=== PATIENT | male | born 1965 | race Caucasian/White ===

== ENCOUNTER 2018-11-22 13:23 | Observation (INO) ==
--- NOTE | 2018-11-22 13:42 | Emergency Department Note ---
Entered by Rosario Cabral acting as a scribe for Jayson Hanson DO History of Present Illness General Chief complaint: Tachycardia Stated complaint: tachycardia Source: patient History of Present Illness Onset (ago): hour(s) (1200 today) Location: chest Pain Consistency: + other (sudden) Quality: + other (palpitations, heart beating rapidly) Associated symptoms: + denies other symptoms and + other (Positive dizziness when staning, anxiousness. Negative history of smoking) The patient is a 53 year old male who presents to the Emergency Room with complaints of palpitations beginning at 1200 today. He notes he was staying at the [facility] when he suddenly felt his heart beating rapidly. He states he has chest tightness, dizziness when standing, and slight anxiousness. Pt is not on any medications and denies any history of smoking or any other symptoms. Home Medications Home Medications Medication Instructions Recorded Confirmed Type Farrah's wort 0 mg PO DAILY PRN 11/22/18 11/22/18 History ascorbic acid (vitamin C) 1 cap PO DAILY 11/22/18 11/22/18 History wuchrunhdmnj-dgje-misdt acid 1 tab PO DAILY 11/22/18 11/22/18 History [Centrum] Allergies Allergy/AdvReac Type Severity Reaction Status Date / Time almond AdvReac Congested Verified 11/22/18 14:14 peanut AdvReac Congested Verified 11/22/18 14:14 Past Med/Surg History Medical History Family history non-contributory Family History Other No pertinent family history Social History Feels Safe at Home: Yes Smoking Status: Former smoker Preferred Language: Ivorian Review of Systems See HPI for pertinent positives & negatives. and A total of 10 systems reviewed and were otherwise negative Physical Exam Vital Signs Vital Signs - 24 hr 11/22/18 13:20 11/22/18 13:26 11/22/18 13:28 Temperature 36.7 C Temperature Source Oral Sepsis Recent Fever Within 48 Hours No Sepsis Action Taken by Nursing No Action Required Pulse Rate 128 H 93 H 104 H Pulse Rate [Left] Pulse Rhythm Respiratory Rate 20 20 22 Respiratory Effort / Characteristics Non-Labored Spontaneous Respiratory Depth Normal Respiratory Pattern Regular Blood Pressure 142/96 H 142/96 H Blood Pressure [Right Arm] Blood Pressure Mean 111 111 Blood Pressure Mean [Right Arm] Pulse Oximetry 95 96 96 Oxygen Delivery Method Room Air Room Air Room Air 11/22/18 13:30 11/22/18 13:33 11/22/18 13:51 Temperature Temperature Source Sepsis Recent Fever Within 48 Hours Sepsis Action Taken by Nursing Pulse Rate 95 H 100 H 100 H Pulse Rate [Left] Pulse Rhythm Regular Respiratory Rate 10 L 17 18 Respiratory Effort / Characteristics Respiratory Depth Respiratory Pattern Blood Pressure 133/85 Blood Pressure [Right Arm] Blood Pressure Mean 101 Blood Pressure Mean [Right Arm] Pulse Oximetry 97 95 96 Oxygen Delivery Method Room Air Room Air Room Air 11/22/18 14:00 11/22/18 14:15 11/22/18 15:00 Temperature Temperature Source Sepsis Recent Fever Within 48 Hours Sepsis Action Taken by Nursing Pulse Rate 104 H 101 H Pulse Rate [Left] 97 H Pulse Rhythm Respiratory Rate 15 17 18 Respiratory Effort / Characteristics Non-Labored Spontaneous Respiratory Depth Normal Respiratory Pattern Regular Blood Pressure 142/86 H 148/89 H Blood Pressure [Right Arm] 140/83 Blood Pressure Mean 104 108 Blood Pressure Mean [Right Arm] 102 Pulse Oximetry 96 94 96 Oxygen Delivery Method Room Air Room Air Room Air 11/22/18 17:00 11/22/18 18:00 Temperature Temperature Source Sepsis Recent Fever Within 48 Hours Sepsis Action Taken by Nursing Pulse Rate Pulse Rate [Left] 83 85 Pulse Rhythm Respiratory Rate 20 20 Respiratory Effort / Characteristics Non-Labored Spontaneous Non-Labored Spontaneous Respiratory Depth Normal Normal Respiratory Pattern Blood Pressure Blood Pressure [Right Arm] 134/84 143/81 H Blood Pressure Mean Blood Pressure Mean [Right Arm] 100 101 Pulse Oximetry 96 96 Oxygen Delivery Method Room Air Room Air GENERAL: Patient is awake and alert. He is somewhat anxious appearing. EYES: The conjunctivae are clear. The pupils are round and reactive. EARS, NOSE, MOUTH AND THROAT: The nose is without any evidence of any deformity. Mucous membranes are moist tongue is midline NECK: The neck is nontender and supple. RESPIRATORY: Normal respiratory effort is noted there is no evidence of wheezing rhonchi or rales CARDIOVASCULAR: Tachycardic rate with regular rhythm was noted. There is no definite murmur appreciated. GASTROINTESTINAL: The abdomen is soft. Bowel sounds are present in all quadrants. Abdomen is nontender MUSCULOSKELETAL/EXTREMITIES: There is no evidence of gross deformity full range of motion is noted in the hips and shoulders SKIN: There is no obvious evidence of any rash. There are no petechiae, pallor or cyanosis noted. NEUROLOGIC: Patient is awake alert and oriented x3 strength is symmetric patellar reflexes are 2+ bilaterally Course 1323: Past medical records reviewed. The patient was evaluated in room B4, and a complete history and physical examination were performed. 1722: I reviewed the patient's case with Kellee Pham PA-C [facility] Hospitalist. She will evaluate the patient for further management. Consultations Consultation #1: I reviewed the patient's case with Kellee Pham PA-C [facility] Hospitalist. She will evaluate the patient for further management. Time: 17:22 Administered Medications Discontinued Medications Aspirin (Aspirin) 324 mg PO NOW STA Stop: 11/22/18 17:24 Last Admin: 11/22/18 17:31 Dose: Not Given Sodium Chloride (Nss 1000ml) 1,000 mls @ 999 mls/hr IV .Q1H1M JESSE Stop: 11/22/18 14:45 Last Infusion: 11/22/18 13:45 Dose: 0 mls/hr Admin: 11/22/18 13:25 Dose: 999 mls/hr Magnesium Sulfate/Dextrose (Magnesium Sulfate / D5w) 1 gm in 100 mls @ 100 mls/ hr IV ONE ONE Stop: 11/22/18 15:37 Last Infusion: 11/22/18 16:07 Dose: 0 mls/hr Admin: 11/22/18 15:06 Dose: 100 mls/hr Potassium Chloride (Klor-Con M10) 20 meq PO NOW STA Stop: 11/22/18 14:39 Last Admin: 11/22/18 15:03 Dose: 20 meq Medical Decision Making Differential Diagnosis Differential diagnosis: Etiologies such as premature contractions, electrolyte abnormality, cardiac dysrhythmia, thyroid dysfunction, pulmonary embolism, infection, gastrointestinal, as well as others were entertained. Medical Records Attestation: I reviewed the patient's medical records. Home Medications Current Medication List: was personally reviewed by me Laboratory Data Attestation: I reviewed the patient's lab results. Result diagrams: 11/22/18 13:49 11/22/18 13:49 Lab Results 11/22/18 11/22/18 11/22/18 Range/Units 13:49 13:49 16:21 WBC 6.59 (4.8-10.8) K/uL RBC 4.75 (4.7-6.1) M/uL Hgb 14.7 (14.0-18.0) g/dL Hct 42.2 (42-52) % MCV 88.8 (80-100) fL MCH 30.9 (25-34) pg MCHC 34.8 (32-36) g/dL RDW Std Deviation 48.4 H (36.4-46.3) fL RDW Coeff of Jason 15.0 H (11.5-14.5) % Plt Count 205 (130-400) K/uL MPV 9.4 (7.4-10.4) fL Immature Gran % (Auto) 0.3 % Neut % (Auto) 79.4 % Lymph % (Auto) 13.5 % Amelia % (Auto) 5.8 % Eos % (Auto) 0.8 % Baso % (Auto) 0.2 % Immature Gran # (Auto) 0.02 (0.00-0.02) K/uL Neut # (Auto) 5.24 (1.4-6.5) K/uL Lymph # (Auto) 0.89 L (1.2-3.4) K/uL Amelia # (Auto) 0.38 (0.11-0.59) K/uL Eos # (Auto) 0.05 (0-0.5) K/uL Baso # (Auto) 0.01 (0-0.2) K/uL Sodium 139 (136-145) mmol/L Potassium 3.3 L (3.5-5.1) mmol/L Chloride 108 H (98-107) mmol/L Carbon Dioxide 22 (21-32) mmol/L Anion Gap 9.0 (3-11) BUN 11 (7-18) mg/dl Creatinine 0.67 (0.6-1.4) mg/dl Est Cr Clr Drug Dosing 150.4 ml/min Est GFR ( Amer) 127.1 Est GFR (Non-Af Amer) 109.7 BUN/Creatinine Ratio 17.0 (10-20) Glucose 127 H (70-99) mg/dl Calcium 7.9 L (8.5-10.1) mg/dl Magnesium 1.6 L (1.8-2.4) mg/dl Total Bilirubin 0.6 (0.2-1) mg/dl AST 56 H (15-37) U/L ALT 139 H (12-78) U/L Alkaline Phosphatase 87 (45-117) U/L Troponin I 0.016 0.127 H* (0-0.045) ng/ml Total Protein 6.2 L (6.4-8.2) gm/dl Albumin 3.6 (3.4-5.0) gm/dl Globulin 2.6 (2.5-4.0) gm/dl Albumin/Globulin Ratio 1.4 (0.9-2) Lipase 68 L (73-393) U/L TSH 1.920 (0.300-4.500) uIu/ml Imaging Data Radiologist's Impression: Radiology results as stated below per my review and the radiologist's interpretation: XR chest 1V portable HISTORY: Atypical Chest Pain COMPARISON: None. FINDINGS: The lungs are clear. Cardiac silhouette is top normal in size. No pleural effusions. No pneumothorax. IMPRESSION: No acute process. Electronically signed by: Maxi Jackson M.D. 11/22/2018 2:01 PM ECG Data Attestation: I personally reviewed and interpreted this ECG as follows: Indication: palpitations Rate (beats per minute): 96 Rhythm: normal sinus Findings: + ST depression (diffuse); no ectopy Comparison ECG Date: no prior available Additional Comments: Repeat EKG shows normal sinus, 89, no ectopy, no acute ST segments, resolution of previously noted ST depression compared to previous tracing Repeat EKG shows normal sinus, 81 no ectopy, no acute ST segments, no change from previous tracing Blood Pressure Blood Pressure Findings: Elevated blood pressure Blood Pressure Disposition: elevated BP felt to be situational MDM Narrative The patient is a 53-year-old male who presented to the emergency department by ambulance for palpitations. The patient was found to be in SVT prior to arrival. Attempts were made to break the SVT with Valsalva maneuver but they were unsuccessful. The patient was receiving IV fluids upon arrival to the emergency department. We continue the IV fluids for a full liter. The patient had a Valsalva maneuver in the emergency department which did resolve the SVT. The patient had an EKG which initially did show ST segment depression. He had a repeat EKG as well as a repeat troponin. The repeat EKG did show resolution of the ST segment abnormalities but his troponin was rising while in the emergency department. I discussed the patient's laboratory and radiographic studies with him. I also discussed this case with the on-call [facility] hospitalist. They have agreed to evaluate the patient in the emergency department for further management and disposition. Impression & Plan Supraventricular tachycardia, Palpitations, Elevated troponin, Abnormal EKG Discharge Plan Visit Data Chief Complaint: Tachycardia Stated Complaint: tachycardia ED Provider: Jayson Hanson Discharge Problem: Supraventricular tachycardia, Palpitations, Elevated troponin, Abnormal EKG Patient Disposition: Being Evaluated by Hospitalist Forms Stand Alone Forms: My [facility] Prescriptions Prescriptions: No Action Farrah's wort 300 mg Capsule PO DAILY PRN (Reason: Anxiety) RF: 0 vnljhxprwvuw-skgn-xnesk acid [Centrum] 18-400 mg-mcg Tablet 1 tab PO DAILY RF: 0 ascorbic acid (vitamin C) 500 mg Capsule 1 cap PO DAILY RF: 0 Referrals Referrals: PCP,NO [Primary Care Provider] - The scribe's documentation has been prepared under my direction and personally reviewed by me in its entirety. I confirm that the note above accurately reflects all work, treatment, procedures, and medical decision making performed by me.
[2018-11-22] MEDS ORDERED: SODIUM CHLORIDE 0.9% 1000ML 1,000 ML IV SCH (13:45)
--- NOTE | 2018-11-22 14:02 | XRay Report ---
XR chest 1V portable HISTORY: Atypical Chest Pain COMPARISON: None. FINDINGS: The lungs are clear. Cardiac silhouette is top normal in size. No pleural effusions. No pne umothorax. IMPRESSION: No acute process. Electronically signed by: Maxi Jackson M.D. 11/22/2018 2:01 PM
[2018-11-22 14:05] LABS: Basophils # (auto) 0.01 K/uL (0-0.2); Basophils % (auto) 0.2 %; Eosinophils # (auto) 0.05 K/uL (0-0.5); Eosinophils % (auto) 0.8 %; Hematocrit (blood only) 42.2 % (42-52); Hemoglobin 14.7 g/dL (14.0-18.0); Immature Granulocytes # (auto) 0.02 K/uL (0.00-0.02); Immature Granulocytes % (auto) 0.3 %; Lymphocytes # (auto) 0.89 K/uL (1.2-3.4); Lymphocytes % (auto) 13.5 %; Mean Corpuscular Hgb Conc 34.8 g/dL (32-36); Mean Corpuscular Volume 88.8 fL (80-100); Mean Platelet Volume 9.4 fL (7.4-10.4); Monocytes # (auto) 0.38 K/uL (0.11-0.59); Monocytes % (auto) 5.8 %; Neutrophils # (auto) 5.24 K/uL (1.4-6.5); Neutrophils % (auto) 79.4 %; Platelet Count 205 K/uL (130-400); RDW Standard Deviation 48.4 fL (36.4-46.3); Red Blood Count 4.75 M/uL (4.7-6.1); White Blood Count 6.59 K/uL (4.8-10.8)
[2018-11-22 14:22] LABS: Albumin Level 3.6 gm/dl (3.4-5.0); Calcium 7.9 mg/dl (8.5-10.1); Creatinine Clr Calc Pharmacy 150.4 ml/min; Est GFR (African American) 127.1; Est GFR (Non-African American) 109.7; Magnesium 1.6 mg/dl (1.8-2.4); Potassium 3.3 mmol/L (3.5-5.1)
[2018-11-22 14:33] LABS: Albumin Globulin Ratio 1.4 (0.9-2); Bilirubin,Total 0.6 mg/dl (0.2-1); Globulin 2.6 gm/dl (2.5-4.0); Total Protein 6.2 gm/dl (6.4-8.2); Troponin I 0.016 ng/ml (0-0.045)
[2018-11-22] MEDS ORDERED: POTASSIUM CHLORIDE 10 MEQ TABCR PO STA (14:38)
[2018-11-22] MEDS ORDERED: MAGNESIUM SULFATE / D5W 1 GM/100 ML BAG IV ONE (14:38)
[2018-11-22] MEDS ORDERED: ASPIRIN CHEW 324 MG PO STA (17:23)
[2018-11-22] MEDS ORDERED: ONDANSETRON INJ 2 MG/ML 2 ML VIAL IV PRN (19:48)
[2018-11-22] MEDS ORDERED: ACETAMINOPHEN 325 MG TAB PO PRN (19:48)
[2018-11-22] MEDS ORDERED: POLYETHYLENE (MIRALAX) 17 GM PACK PO PRN (19:48)
[2018-11-22] MEDS ORDERED: MAGNESIUM HYDROXIDE SUSP 30 ML UDC PO PRN (19:48)
[2018-11-22] MEDS ORDERED: ALUMINUM/MAGNESIUM SUSP 30 ML UDC PO PRN (19:48)
--- NOTE | 2018-11-22 20:11 | History & Physical Report ---
Date of Service November 22, 2018 Assessment & Plan (1) Supraventricular tachycardia: - Had SVT in rates 220-250 upon EMS arrival - ultimately converted with Valsalva manuever and remaining in NSR - Slightly elevated troponins currently at 0.127 and this is likely demand ischemia from rapid heart rates but will trend - Echocardiogram - Will monitor overnight for any recurrent arrhythmias - Will hold on rate control medications at this time but could use BB therapy or if true SVT then possible adenosine - K was slightly low at 3.3 and repleted in ED and will monitor Present on Admission?: Yes History of Present Illness Chief Complaint: Racing Heart Rate Primary Care Provider: NO PCP Mr. Black is a 53 y/o male with an unremarkable PMHx who presents to the ED c/ o a racing heart rate prior to admission. He is from [place] and was at the [facility] for a conference. He states he was cleaning off his car and felt his heart rate going fast. Even with rest this did not improve. He did endorse some mild chest pressure with this. He states he has had palpitations in the past but only lasting a second, nothing sustained like today. He was found to be in SVT with a rate of 220-250 and attempts at Valsalva was initially unsuccessful. He was given a bolus of fluids and Valsalva was attempted again in the ED with conversion to NSR with rates largely in the 80s. He is currently asymptomatic and feeling at baseline. He did have some mild ST segment depressions which are improved. Initially troponin was 0.016 and increased to 0.127. He states he did have a recent URI/sinus infection treated with Augmentin approximately 5 weeks ago but otherwise in his normal state of health. States he still feels a little bit of residual coughing from his recent URI. He denies H/O DVT/PE or cardiac disease. Denies FHMx of cardiac disease. Allergies Allergy/AdvReac Type Severity Reaction Status Date / Time almond AdvReac Congested Verified 11/22/18 14:14 peanut AdvReac Congested Verified 11/22/18 14:14 Home Medications Home Medications Medication Instructions Recorded Confirmed Type Farrah's wort 0 mg PO DAILY PRN 11/22/18 11/22/18 History ascorbic acid (vitamin C) 1 cap PO DAILY 11/22/18 11/22/18 History mxxghwizxses-pskt-dmyij acid 1 tab PO DAILY 11/22/18 11/22/18 History [Centrum] Past Med/Surg History Medical History Family history non-contributory Family History Other No pertinent family history Social History Current Living Situation: Spouse Other Information That Helps Us Care for You: No Feels Safe at Home: Yes Safety Concerns: Feels Safe At This Time Smoking Status: Never smoker Hx Alcohol Use: No Hx Substance Use: No Beliefs That Will Affect Care: None Preferred Language: Malaysian Review of Systems Constitutional: no fever and no chills Eyes: no worsening vision Respiratory: no cough and no dyspnea Cardiovascular: no chest pain, no palpitations and no lightheadedness Gastrointestinal: no abdominal pain, no nausea, no vomiting, no constipation and no diarrhea/loose stools Genitourinary (Male): no dysuria Integumentary: no rash Physical Exam 2 Vital Signs (Past 24 Hours): Last Vital Signs Temp 36.8 C 11/22/18 19:48 Pulse 83 11/22/18 19:48 Resp 16 11/22/18 19:48 BP 144/88 H 11/22/18 19:48 Pulse Ox 96 11/22/18 19:48 Constitutional: well developed and well nourished; no acute distress and not ill appearing Eyes: + anicteric sclerae Neck: trachea midline Respiratory: normal respiratory effort, lungs clear to auscultation Cardiovascular: RRR, no murmur, no edema Gastrointestinal (Abdomen): Inspection/Auscultation: normal bowel sounds Percussion/Palpation: abdomen soft; abdomen nontender Musculoskeletal: Head/Neck/Chest: normocephalic, head atraumatic and neck supple Skin: no rashes, warm and dry Neurologic: moves all extremities Psychiatric: A+Ox3, euthymic affect Code Status & VTE Plan Code Status FULL CODE Supervising Physician Co-Signing Physician Notes Patient seen and examined, chart reviewed, case discussed with INES Pham and I agree with her assessment and plan as documented above. Briefly, patient is a 53yo male presenting with episode of SVT, HR 220-250 which resolved with Valsalva maneuver. Patient also with mildly elevated troponin at 0.127. Reports anxiety and some mild chest soreness duing SVT. On physical exam he is afebrile, HD stable, HR of 83 and sinus Gen: nontoxic Skin: no rash HEENT: NC/AT, PERRL, MMM, neck supple Heart: +S1/S2, regular, no m/r/g Lungs: CTA, no rales/rhonchi/wheezes Abd: +BS, soft, NT/ND Ext: no edema Labs and images reviewed. K=3.3, Mg=1.6, Calcium=7.9, Trop=0.127 Patient given 1gm of Magnesium and 20Meq of K in ER Assessment/Plan: 53yo male presents with SVT, mildly elevated troponin -Observation overnight with telemetry -Echo in AM -Trend troponins -Optimize electrolytesa Remainder of plan as above
[2018-11-23 04:49] LABS: Hematocrit (blood only) 43.9 % (42-52); Hemoglobin 14.9 g/dL (14.0-18.0); Mean Corpuscular Hgb Conc 33.9 g/dL (32-36); Mean Corpuscular Volume 90.7 fL (80-100); Mean Platelet Volume 9.7 fL (7.4-10.4); Platelet Count 245 K/uL (130-400); RDW Coefficient of Variation 15.3 % (11.5-14.5); RDW Standard Deviation 50.8 fL (36.4-46.3); Red Blood Count 4.84 M/uL (4.7-6.1); White Blood Count 10.92 K/uL (4.8-10.8)
[2018-11-23 04:50] LABS: Albumin Globulin Ratio 1.3 (0.9-2); Albumin Level 3.6 gm/dl (3.4-5.0); BUN Creatinine Ratio 14.4 (10-20); Bilirubin,Total 0.5 mg/dl (0.2-1); Calcium 8.3 mg/dl (8.5-10.1); Creatinine Clr Calc Pharmacy 120.6 ml/min; Est GFR (African American) 115.3; Est GFR (Non-African American) 99.5; Globulin 2.7 gm/dl (2.5-4.0); Magnesium 2.2 mg/dl (1.8-2.4); Potassium 4.1 mmol/L (3.5-5.1); Total Protein 6.3 gm/dl (6.4-8.2); Troponin I 0.073 ng/ml (0-0.045)
--- NOTE | 2018-11-23 18:18 | Discharge Summary ---
Date of Service November 23, 2018 Admission HPI Per Admitting Provider Mr. Black is a 53 y/o male with an unremarkable PMHx who presents to the ED c/ o a racing heart rate prior to admission. He is from [place] and was at the [facility] for a conference. He states he was cleaning off his car and felt his heart rate going fast. Even with rest this did not improve. He did endorse some mild chest pressure with this. He states he has had palpitations in the past but only lasting a second, nothing sustained like today. He was found to be in SVT with a rate of 220-250 and attempts at Valsalva was initially unsuccessful. He was given a bolus of fluids and Valsalva was attempted again in the ED with conversion to NSR with rates largely in the 80s. He is currently asymptomatic and feeling at baseline. He did have some mild ST segment depressions which are improved. Initially troponin was 0.016 and increased to 0.127. He states he did have a recent URI/sinus infection treated with Augmentin approximately 5 weeks ago but otherwise in his normal state of health. States he still feels a little bit of residual coughing from his recent URI. He denies H/O DVT/PE or cardiac disease. Denies FHMx of cardiac disease. Principal Diagnosis Supraventricular Tachycardia Discharge Exam Constitutional well developed and well nourished; no acute distress and not ill appearing Eyes + anicteric sclerae Neck trachea midline Respiratory normal respiratory effort, lungs clear to auscultation Cardiovascular RRR, no murmur, no edema Gastrointestinal (Abdomen) Inspection/Auscultation: normal bowel sounds Percussion/Palpation: abdomen soft; abdomen nontender Musculoskeletal Head/Neck/Chest: normocephalic, head atraumatic and neck supple Skin no rashes, warm and dry Neurologic moves all extremities Psychiatric A+Ox3, euthymic affect Discharge Data Allergies Allergy/AdvReac Type Severity Reaction Status Date / Time almond AdvReac Congested Verified 11/22/18 14:14 peanut AdvReac Congested Verified 11/22/18 14:14 Consultations 11/22/18 17:24 ED Decision to Admit Stat Hospital Course (1) Supraventricular tachycardia: - Had SVT in rates 220-250 upon EMS arrival - ultimately converted with Valsalva manuever and remaining in NSR during overnight admission - Had a slight elevated troponin that peaked at 0.14 and is trending down currently at 0.07 and no CP or ischemic findings on EKG - Echocardiogram reveals EF 55-60% with grade I diastolic dysfunction; some mild sclerosis of the aortic valve without stenosis and some mild mitral regurgitation; mild LVH - discussed these findings with patient and and recommend heart healthy diet/exercise and does have occ. high BPs which should be monitored and treated if necessary to help prevent further cardiac issue - Discussed with cardiology with review of EKGs no evidence of a possible re- entry arrhythmia/WPW or alarming findings on EKG - Recommendations for a holter monitor x 7 days however patient is symptomatic and likely would know if he goes into SVT - did instruct to try Valsalva again as this did work but to still seek medical attention - Other than some mild elevated BPs and a K of 3.3 on admission no other abnormalities noted - TSH WNL Total Time Total Time Spent Total Time Spent (In Minutes): Greater than 30 minutes Discharge Plan Discharge Items Patient Disposition: Home - Self-Care Reason For Visit: SVT Discharge Diagnosis: Supraventricular Tachycardia Condition: Good Discharge Goals: Decrease discomfort, Improve disease control and Improve function Activity: Resume your previous activity Non-emergency contact: Primary Care Provider Call non-emergency contact if: you have any medication questions, your symptoms worsen and you have a fever Follow-up/Referrals: Dr. Gurwinder Lynch [Other] - 12/04/18 11:00 am (Please, follow up with Dr. Gurwinder Weber on FridayDecember 04 at 11:00 am. *If you need to change this appointment, call the office at [phone]. YOU WILL BE RECEIVING A CARDIAC EVENT MONITOR IN THE MAIL. IT WILL INCLUDE EASY TO FOLLOW INSTRUCTIONS. THE RESULTS WILL BE SENT TO DR. GURWINDER VINES.) Diet: Regular Addtl Provider Instructions: Supraventricular Tachycardia: - Please read the handouts provided about this heart rhythm. - You had an isolated event of this rhythm that resolved with doing a Valsalva maneuver. If this would happen again you can try that maneuver again. This is when you forcefully breathe against a closed mouth and with nose pinched. It mimics straining to have a bowel movement and holding this for 10-15 seconds if able. However its best to get this checked out again if it happens - We checked your TSH (thyroid levels) which were normal. Your electrolytes are normal (just a slight low potassium level when you first came in) - We do not see signs of a heart attack to explain this rhythm. Your cardiac markers bumped up just a little to 0.147 but now are trending back to normal ( normal being 0.015) this is common due to how fast your heart rate was going which can cause some stress on the heart (temporary) - We had a [employer] consultant look at your EKGs and did not see any underlying findings to suggest a chronic reason for this episode like Curtis Parkinson White Syndrome - Recommend to use a Holter monitor for about 7 days to see if we can capture any other irregular rhythms. This device feeds only to the device that you are wearing and then is downloaded at the [employer] consultant office so should not interfere with your work - We are still awaiting your echocardiogram. We are looking for wall motion changes or heart valve issues that could possibly explain this rhythm. Ultimately if this is found it would require some monitoring and maybe some medication that can be started by your family doctor or if needed a [employer] consultant back home. I will call you as soon as your echocardiogram report shows up. - If this reoccurs you may need some medication to help prevent your heart rates from going too fast but at this time we will hold on this. Recommend to follow-up with your family doctor and can take this information with you to that appointment Prescriptions: Continue Farrah's wort 300 mg Capsule PO DAILY PRN (Reason: Anxiety) RF: 0 wpsksvwsqbdb-qqrn-xirrx acid [Centrum] 18-400 mg-mcg Tablet 1 tab PO DAILY RF: 0 ascorbic acid (vitamin C) 500 mg Capsule 1 cap PO DAILY RF: 0 Stand-Alone Forms: My [facility] [employer]/Other Patient Handouts: Understanding Supraventricular Tachycardia SVT, Treatment for Supraventricular Tachycardia SVT Discharge Orders: Discharge Order (Routine); Ordered 11/23/18 Ordered By: Kellee Pham Admission Data Admit Date/Time: 11/22/18 18:39 Attending Provider: Cirilo Floyd Admit Provider: Leatha Mcfadden Primary Care Provider: PCP,NO Other Providers: Moy Mendiola ; Cirilo Floyd Service: Telemetry Other Interventions: Discharge Summary Assessment (RN) Last Done: 11/23/18 14:54 Pending Studies at Discharge: No DC Date/Time DO NOT enter until pt leaves facility: 11/23/18 15:39 Supervising Physician Co-Signing Physician Notes Attending note: patient seen and examined with Kellee Pham PA-C. I agree with her discharge summary. Patient admitted with an episode of SVT that resolved with valsalva maneuver. He had never experienced this before. He had chest pressure and palpitations while it was occurring. Several EKG after the event showed NSR, the FL interval was normal, no signs that might point towards WPW syndrome. Echocardiogram was normal. Will discharge to home, patient can follow up with his PCP in [place]. Will arrange for a Holter monitor as outpatient to see if he his having any asymptomatic arrhythmias. Would not start a beta carlos at this time as this is one single episode.
== END 2018-11-23 15:39 | disposition home or self-care (01) ==
LOC: ED 13:23 → 2S 13:23 → SUATTDRO 18:39 → 2S 19:09